=== PATIENT | male | born 1975 ===

== ENCOUNTER 2018-05-04 11:12 | Emergency (ER) | payer OTHER ==
[2018-05-04 11:19] VITALS: BMI 31.5
[2018-05-04 11:22] VITALS: RESP 18; O2SAT 98
[2018-05-04] MEDS ORDERED: Sodium Chloride 0.9% 1,000 ML IV ONE (11:41)
--- NOTE | 2018-05-04 11:50 | C.PDOC ---
History Of Present Illness 42 year old male presents to ED for evaluation of mild intermittent lower abdominal pain for the last 3 days. Pain is described as cramping, and radiates to lower back. Notes he felt constipated for 2 days, had normal bowel movement last night. Denies fever, chills, nausea, vomiting, blood in stool, or urinary symptoms. In addition, patient complains of right shoulder pain for the last 2 days which developed after lifting heavy objects. Notes pain is worse with movement. He reports taking Advil with mild relief. Otherwise, denies numbness, or weakness. Time Seen by Provider: 05/04/18 11:27 Chief Complaint (Nursing): Abdominal Pain History Per: Patient History/Exam Limitations: no limitations Onset/Duration Of Symptoms: Days, Intermittent Episodes Current Symptoms Are (Timing): Still Present Location Of Pain/Discomfort: RLQ, LLQ Radiation Of Pain To:: Back Quality Of Discomfort: Cramping Associated Symptoms: Back Pain, Constipation. denies: Nausea, Vomiting, Diarrhea, Loss Of Appetite, Chest Pain, Urinary Symptoms Exacerbating Factors: Movement Alleviating Factors: OTC Meds (mild) Last Bowel Movement: Yesterday Recent travel outside of the [place]: No Additional History Per: Patient Past Medical History Reviewed: Historical Data, Nursing Documentation, Vital Signs Vital Signs: Last Vital Signs Temp 98 F 05/04/18 12:57 Pulse 76 05/04/18 12:57 Resp 18 05/04/18 12:57 BP 126/73 05/04/18 12:57 Pulse Ox 98 05/04/18 14:04 Family History: States: Unknown Family Hx - Social History Hx Alcohol Use: No Hx Substance Use: No Review Of Systems Constitutional: Negative for: Fever, Chills, Weakness Cardiovascular: Negative for: Palpitations Respiratory: Negative for: Shortness of Breath Gastrointestinal: Positive for: Abdominal Pain, Constipation. Negative for: Nausea, Vomiting, Diarrhea, Melena, Hematochezia, Rectal Pain Genitourinary: Negative for: Dysuria, Frequency, Incontinence, Hematuria, Penile Discharge, Scrotal Pain, Penile Pain Musculoskeletal: Positive for: Shoulder Pain (right), Back Pain Neurological: Negative for: Weakness, Numbness Physical Exam - Physical Exam Appears: Non-toxic, No Acute Distress Skin: Normal Color, Warm, Dry Head: Atraumatic, Normacephalic Eye(s): bilateral: Normal Inspection Oral Mucosa: Moist Neck: Normal ROM, Supple Chest: Symmetrical Cardiovascular: Rhythm Regular, No Murmur Respiratory: Normal Breath Sounds, No Rales, No Rhonchi, No Wheezing Gastrointestinal/Abdominal: Bowel Sounds, Soft, Tenderness (minimal tenderness to bilateral lower quadrants), No Distention, No Guarding, No Rebound, No Hernia , No Ascites, No Other ((-)McBurney's) Back: Normal Inspection, No CVA Tenderness Extremity: No Normal ROM (pain to right shoulder joint with abduction), Tenderness (right shoulder), Capillary Refill (less than 2 seconds), No Deformity, No Swelling Extremity: Bilateral: Normal Color And Temperature Pulses: Right Brachial: Normal, Right Radial: Normal Neurological/Psych: Oriented x3, Normal Speech, Normal Sensation ED Course And Treatment - Laboratory Results Result Diagrams: 05/04/18 11:57 05/04/18 11:57 Lab Interpretation: No Acute Changes O2 Sat by Pulse Oximetry: 98 (RA) Pulse Ox Interpretation: Normal Medical Decision Making Medical Decision Making: Plan: * Blood work * Urinalysis * Obstructive series * Right shoulder x-ray * Toradol, Pepcid, IV fluids Reassess Labs reviewed. No leukocytosis, bandemia, electrolyte abnormality. Urine clear Xray shows no evidence of mechanical obstruction or calculus. Xray of shoulder shows no fracture or dislocation. Patient reevaluated and is resting comfortably in no acute distress. Patient reports improvement of symptoms, but states it is intermittent and felt some pain 10 minutes prior. Still denies any pain to groin or urinary symptoms. Discussed results of labs and Xray with patient, and copy was provided. Patient feels comfortable going home and will be discharged. Patient given follow up instructions to see GI and PMD. Instructed to return to ER if symptoms worsen or new symptoms arise. Disposition Counseled Patient/Family Regarding: Diagnosis, Need For Followup, Rx Given - [facility] [Outside] Disposition: HOME/ ROUTINE Disposition Time: 12:31 Condition: STABLE Additional Instructions: Alycia un seguimiento con [place] mdico primario o clnica en 2-5 [place] para veronique evaluacin adicional. [place] los medicamentos segn lo recetado. Regrese al departamento de emergencia en cualquier momento si los sntomas persisten o empeoran. Prescriptions: Dicyclomine [Bentyl] 10 mg PO QID #20 cap Docusate [Colace] 100 mg PO TID PRN #30 cap PRN Reason: Constipation Pantoprazole Sodium [Protonix] 20 mg PO DAILY #20 ect Instructions: Shoulder Sprain, Constipation, Adult (DC) Forms: [employer] ([place]uneian) Print Language: GREEK - POA Present On Arrival: None - Clinical Impression Clinical Impression: Abdominal colic, Constipation, Shoulder strain - PA / SALES DEVELOPER / Resident Statement MD/DO has reviewed & agrees with the documentation as recorded. - Scribe Statement The provider has reviewed the documentation as recorded by the Randallibcollin Cottrell All medical record entries made by the Randallibcollin were at my direction and personally dictated by me. I have reviewed the chart and agree that the record accurately reflects my personal performance of the history, physical exam, medical decision making, and the department course for this patient. I have also personally directed, reviewed, and agree with the discharge instructions and disposition.
[2018-05-04] MEDS ORDERED: Sodium Chloride 0.9% 1,000 ML ONE (11:57)
[2018-05-04 12:02] LABS: BASO # 0.1 K/uL (0.0-0.2); EOS # 0.2 K/uL (0.0-0.7); EOS % 2.7 % (0.0-4.0); HEMOGLOBIN 14.7 g/dL (12.0-18.0); LYMPH # 2.4 K/uL (1.0-4.3); LYMPH % 35.1 % (20.0-40.0); MEAN CELL VOLUME 90.4 fL (80.0-94.0); MEAN CORPUSCULAR HEMOGLOBIN 31.2 pg (27.0-31.0); MEAN CORPUSCULAR HGB CONC 34.5 g/dL (33.0-37.0); MEAN PLATELET VOLUME 9.6 fL (7.2-11.7); MONO # 0.6 K/uL (0.0-0.8); MONO % 8.5 % (0.0-10.0); NEUT # 3.5 K/uL (1.8-7.0); NEUT % 52.7 % (50.0-75.0); NRBC % 0.7 % (0.0-2.0); RBC 4.7 Mil/uL (4.40-5.90); RED CELL DISTRIBUTION WIDTH 13.8 % (11.5-14.5); WHITE BLOOD COUNT 6.7 K/uL (4.8-10.8)
[2018-05-04 12:04] LABS: URINE BILIRUBIN NEGATIVE (NEGATIVE); URINE BLOOD NEGATIVE (NEGATIVE); URINE CLARITY Clear (Clear); URINE COLOR Yellow (YELLOW); URINE GLUCOSE (UA) NORMAL (Normal); URINE LEUKOCYTE ESTERASE NEG Leu/uL (Negative); URINE PROTEIN NEGATIVE (NEGATIVE); URINE UROBILINOGEN NORMAL mg/dL (0.2-1.0)
[2018-05-04 12:21] LABS: ALB/GLOB RATIO 1.7 (1.0-2.1); ALBUMIN 4.3 g/dL (3.5-5.0); ALT/SGPT 35 U/L (21-72); AST/SGOT 28 U/L (17-59); BLOOD UREA NITROGEN 13 mg/dL (9-20); CALCIUM 8.5 mg/dl (8.6-10.4); GFR AFRICAN-AMERICAN > 60; GFR NON-AFRICAN AMERICAN > 60; LIPASE 57 U/L (23-300)
[2018-05-04 12:58] VITALS: BP 126/73; PULSE 76; TEMP 98
--- NOTE | 2018-05-04 13:24 | RAD ---
Date of service: 05/04/2018 PROCEDURE: Radiographs of the chest and abdomen (obstructive series) HISTORY: abd pain COMPARISON: No prior. TECHNIQUE: AP radiograph of the chest, with upright and supine radiographs of the abdomen. FINDINGS: CHEST: Lungs: Clear. Cardiovascular: Normal size heart. No pulmonary vascular congestion. Pleura: No pleural fluid. No pneumothorax. Other findings: None. ABDOMEN AND PELVIS: Bowel: Mild constipation, otherwise grossly unremarkable bowel gas pattern. No evidence of mechanical obstruction. Free air: None. Bones: Unremarkable. Other findings: None. IMPRESSION: Mild constipation otherwise unremarkable radiographs of chest and abdomen. No evidence of mechanical bowel obstruction.
--- NOTE | 2018-05-04 15:39 | RAD ---
Date of service: 05/04/2018 PROCEDURE: Radiographs of the Right Shoulder HISTORY: pain s.p work injury COMPARISON: No prior. FINDINGS: BONES: Normal. No fracture. JOINTS: Normal. Glenohumeral and acromioclavicular joints preserved. No osteoarthritis. SOFT TISSUES: Normal. OTHER FINDINGS: None. IMPRESSION: No evidence of acute fracture or dislocation.
== END 2018-05-04 12:58 | disposition home or self-care (01) ==
LOC: C.ER 11:12
DX: K59.00 Constipation, unspecified (principal); R10.84 Generalized abdominal pain; S46.911A Strain of unspecified muscle, fascia and tendon at shoulder and upper arm level, right arm, initial encounter; X50.0XXA Overexertion from strenuous movement or load, initial encounter
CPT/HCPCS: 73030; 74022; 80053; 81001; 82948; 83690; 85025; 96374; 96375; 99285; J1885; J7030